=== PATIENT | male | born 1980 | race Caucasian/White ===

== ENCOUNTER 2018-05-02 22:11 | Emergency (ER) | payer SELFPAY ==
[2018-05-03 00:36] VITALS: BP 139/69
== END 2018-05-03 00:42 | disposition left against medical advice (07) ==
LOC: ED 22:11
DX: R10.9 Unspecified abdominal pain (principal); Z53.21 Procedure and treatment not carried out due to patient leaving prior to being seen by health care provider

== ENCOUNTER 2018-05-03 03:11 | Emergency (ER) | payer SELFPAY ==
[2018-05-03] MEDS ORDERED: Ketorolac INJ* 30 MG/ML 1 ML VIAL IV PUSH ONE (03:41)
[2018-05-03] MEDS ORDERED: NS 0.9% 1000 ML* 1,000 ML IV ONE (03:41)
[2018-05-03 03:55] LABS: ABS Basophils 0.1 10^3/ul (0-0.2); ABS Eosinophils 0.3 10^3/ul (0-0.6); ABS Lymphocytes 3.3 10^3/ul (1.0-4.8); ABS Monocytes 1.1 10^3/ul (0-0.8); ABS Neutrophils 4.4 10^3/ul (1.5-7.7); ABS Nucleated RBC 0 10^3/ul; Eosinophil % 2.9 % (0-6); Hematocrit 43 % (42-52); Hemoglobin 14.5 g/dl (14.0-18.0); Mean Corpuscular HGB Conc 34 g/dl (31-36); Mean Corpuscular Hemoglobin 30 pg (27-31); Mean Corpuscular Volume 89 fL (80-94); Mean Platelet Volume 7.3 um3 (7.4-10.4); Nucleated Red Blood Cells % 0; Platelet Count 330 10^3/ul (150-450); Red Blood Count 4.81 10^6/ul (4.00-5.40); Red Cell Distribution Width 14 % (10.5-15); White Blood Count 9.1 10^3/ul (3.5-10.8)
--- NOTE | 2018-05-03 04:03 | ED ---
Abdominal Pain/Male - HPI Summary HPI Summary: This is derick Rodriguez Almeida documenting for attending Josemanuel Crawley MD. This patient is a 38 year old M presenting to [facility] with a chief complaint of diffuse ABD pain that began at 0600 today. The patient rates the pain 10/10 in severity. Patient reports nausea and ABD bloating. Patient denies vomiting. Pt states he had a bm at 2100 that had blood streaked on it. Pt was in the ED earlier tonight and left without being seen. - History of Current Complaint Chief Complaint: EDAbdPain Stated Complaint: ABD PAIN/FLANK PAIN Time Seen by Provider: 05/03/18 03:28 Hx Obtained From: Patient Onset/Duration: Lasting Days - 1, Still Present Timing: Constant Severity Initially: Severe Severity Currently: Severe Pain Intensity: 10 Pain Scale Used: 0-10 Numeric Location: Diffuse Radiates: No Associated Signs And Symptoms: Positive: Nausea - Allergies/Home Medications Allergies/Adverse Reactions: Allergies Allergy/AdvReac Type Severity Reaction Status Date / Time No Known Allergies Allergy Verified 05/03/18 03:17 PMH/Surg Hx/FS Hx/Imm Hx Endocrine/Hematology History: Denies: Hx Diabetes Cardiovascular History: Denies: Hx Atrial Fibrillation, Hx Cardiomegaly, Hx Coronary Artery Disease, Hx Embolism Respiratory History: Denies: Hx Chronic Obstructive Pulmonary Disease (COPD), Hx Lung Cancer, Hx Pneumonia GI History: Denies: Hx Gall Bladder Disease, Hx Gastrointestinal Bleed Musculoskeletal History: Denies: Hx Scoliosis, Hx of Fracture(s) Sensory History: Denies: Hx Cataracts Infectious Disease History: No Infectious Disease History: Denies: Traveled Outside the [place] in Last 30 Days - Family History Known Family History: Negative: Respiratory Disease, Seizure Disorder, Blood Disorder - Social History Alcohol Use: Occasionally Hx Substance Use: No Substance Use Type: Reports: None Hx Tobacco Use: No Smoking Status (MU): Unknown if Ever Smoked Review of Systems Gastrointestinal: Other - bloating Positive: Abdominal Pain, Nausea, Other - blood on stool All Other Systems Reviewed And Are Negative: Yes Physical Exam - Summary Physical Exam Summary: VITAL SIGNS: Reviewed. GENERAL: Patient is a well-developed and nourished male who is lying comfortable in the stretcher. Patient is not in any acute respiratory distress. HEAD AND FACE: No signs of trauma. No ecchymosis, hematomas or skull depressions. No sinus tenderness. EYES: PERRLA, EOMI x 2, No injected conjunctiva, no nystagmus. EARS: Hearing grossly intact. Ear canals and tympanic membranes are within normal limits. MOUTH: Oropharynx within normal limits. NECK: Supple, trachea is midline, no adenopathy, no JVD, no carotid bruit, no c- spine tenderness, neck with full ROM. CHEST: Symmetric, no tenderness at palpation LUNGS: Clear to auscultation bilaterally. No wheezing or crackles. CVS: Regular rate and rhythm, S1 and S2 present, no murmurs or gallops appreciated. ABDOMEN: Soft, non-tender. No signs of distention. No rebound no guarding, and no masses palpated. Bowel sounds are hyperactive EXTREMITIES: FROM in all major joints, no edema, no cyanosis or clubbing. NEURO: Alert and oriented x 3. No acute neurological deficits. Speech is normal and follows commands. SKIN: Dry and warm Triage Information Reviewed: Yes Vital Signs On Initial Exam: Initial Vitals Temp Pulse Resp BP Pulse Ox 97.6 F 63 16 140/76 98 05/03/18 03:14 05/03/18 03:14 05/03/18 03:14 05/03/18 03:14 05/03/18 03:14 Vital Signs Reviewed: Yes Diagnostics - Vital Signs Vital Signs Temp Pulse Resp BP Pulse Ox 05/03/18 03:14 97.6 F 63 16 140/76 98 - Laboratory Lab Results: Lab Results 05/03/18 Range/Units 03:45 WBC 9.1 (3.5-10.8) 10^3/ul RBC 4.81 (4.00-5.40) 10^6/ul Hgb 14.5 (14.0-18.0) g/dl Hct 43 (42-52) % MCV 89 (80-94) fL MCH 30 (27-31) pg MCHC 34 (31-36) g/dl RDW 14 (10.5-15) % Plt Count 330 (150-450) 10^3/ul MPV 7.3 L (7.4-10.4) um3 Neut % (Auto) 48.5 (38-83) % Lymph % (Auto) 36.0 (25-47) % [place] % (Auto) 12.0 H (0-7) % Eos % (Auto) 2.9 (0-6) % Baso % (Auto) 0.6 (0-2) % Absolute Neuts (auto) 4.4 (1.5-7.7) 10^3/ul Absolute Lymphs (auto) 3.3 (1.0-4.8) 10^3/ul Absolute Monos (auto) 1.1 H (0-0.8) 10^3/ul Absolute Eos (auto) 0.3 (0-0.6) 10^3/ul Absolute Basos (auto) 0.1 (0-0.2) 10^3/ul Absolute Nucleated RBC 0 10^3/ul Nucleated RBC % 0 Result Diagrams: 05/03/18 03:45 05/03/18 03:45 Lab Statement: Any lab studies that have been ordered have been reviewed, and results considered in the medical decision making process. - Radiology ABD Xray Radiology Interpretation Completed By: ED Physician - stool impaction consistent with constipation Pending official report Abdominal Pain Fem Course/Dx - Course Assessment/Plan: This patient is a 38 year old M presenting to [facility] with a chief complaint of diffuse ABD pain that began at 0600 today. The patient rates the pain 10/10 in severity. Patient reports nausea and ABD bloating. Patient denies vomiting. Pt states he had a bm at 2100 that had blood streaked on it. Pt was in the ED earlier tonight and left without being seen. CXR reveals, per radiologist, stool impaction consistent with constipation. Test results with no significant abnormalities. In the ED course the patient was given ducolax, magnesium citrate, IV fluids, and toradol. Dx constipation. Patient will be discharged and follow up from physician referral center. The patient is agreeable with this plan. - Diagnoses Provider Diagnoses: Constipation Discharge - Sign-Out/Discharge Documenting (check all that apply): Patient Departure - Discharge Plan Condition: Stable Disposition: HOME Patient Education Materials: Constipation (ED), High Fiber Diet (ED) Referrals: [facility] PHYS[facility]IAN REFERRAL [Outside] - 2 Days Additional Instructions: RETURN TO THE EMERGENCY DEPARTMENT FOR CHANGING OR WORSENING SYMPTOMS Attestation Statement Scribe Attestation: This is derick Almeida documenting for attending Josemanuel rCawley MD. User Type: Provider with Scribe Provider Attestation: The documentation recorded by the scribe accurately reflects the service I personally performed and the decisions made by me.
[2018-05-03 04:13] LABS: EGFR Non-African American 98.2 (>60)
[2018-05-03] MEDS ORDERED: Magnesium CITRATE* 300 ML BTL PO ONE (04:19)
[2018-05-03] MEDS ORDERED: Bisacodyl SUPP* 10 MG SUPP PR ONE (04:19)
[2018-05-03] MEDS ORDERED: Ketorolac INJ* 60 MG/2 ML VIAL IM ONE (04:25)
[2018-05-03] MEDS ORDERED: Ketorolac INJ* 60 MG/2 ML VIAL ONE (04:30)
[2018-05-03 04:44] VITALS: BP 135/81
--- NOTE | 2018-05-03 08:02 | RAD ---
Indication: Abdominal and flank pain. Comparison: No relevant prior exams available on the [facility] PACS for comparison. Technique: Supine and upright views of the abdomen. Report: Negative for free air beneath the diaphragm. Unremarkable bowel gas pattern with only a small volume of stool visualized within the colon. RIGHT pelvic phlebolith noted. No suspicious calcifications or mass effect. Unremarkable soft tissue contours. Clear lung bases. IMPRESSION: #. No abdominal pelvic pathologic process evident.
== END 2018-05-03 04:44 | disposition home or self-care (01) ==
LOC: ED 03:11
DX: K59.00 Constipation, unspecified (principal); R11.0 Nausea
CPT/HCPCS: 36415; 74019; 80053; 83605; 83690; 83735; 85025; 86140; 96372; 96374; 99283; A9270-GY; J1885